=== PATIENT | male | born 1960 ===

== ENCOUNTER 2021-12-08 08:29 | Outpatient (CLI) | payer MEDICAID ==
--- NOTE | 2021-12-08 11:42 | XRAY Report ---
PROCEDURE: Foot 3 View LT INDICATIONS: PAIN IN LEFT TOE TECHNIQUE: 3 views of the foot were acquired. COMPARISON: None FINDINGS: Bones: No fractures or dislocations. No suspicious bony lesions. Soft tissues: No tibiotalar joint effusion. Achilles tendon appears normal. IMPRESSION: No osseous lesion. If there are persistent symptoms or continued clinical concern for pathology, then repeat plain film radiographs (7-10 days) or advanced imaging (CT, MR, bone scan) should be consider ed for further evaluation. Reviewed by: Tracie Wilkinson MD, PhD on 12/08/2021 11:41 AM PST Approved by: Tracie Wilkinson MD, PhD on 12/08/2021 11:[address] [facility] Station ID: [id number]
--- NOTE | 2021-12-08 11:43 | XRAY Report ---
PROCEDURE: Hand 3 View LT INDICATIONS: PAIN IN FINGER LEFT HAND, PAIN IN LEFT TOE TECHNIQUE: 3 views of the hand(s) acquired. COMPARISON: None FINDINGS: Bones: No fractures or dislocations. No suspicious bony lesions. Moderate osteoarthritic degenerati ve changes noted in the fifth PIP joint. Soft tissues: No suspicious soft tissue calcifications. Nonspecific soft tissue swelling noted in th e fifth finger. IMPRESSION: Moderate fifth DIP joint osteoarthritis. Reviewed by: Tracie Wilkinson MD, PhD on 12/08/2021 11:42 AM PST Approved by: Tracie Wilkinson MD, PhD on 12/08/2021 11:42 AM PST Station ID: [id number]
== END 2021-12-08 08:30 | disposition home or self-care (01) ==
LOC: DI.S 08:29
PROVIDERS: ATTEND Nurse Practitioner Family
DX: M19.042 Primary osteoarthritis, left hand (principal); M79.675 Pain in left toe(s)

== ENCOUNTER 2023-02-25 07:00 | Outpatient (CLI) | payer MEDICAID ==
--- NOTE | 2023-02-25 12:09 | XRAY Report ---
PROCEDURE: Knee 4 View RT INDICATIONS: RIGHT KNEE EFFUSION TECHNIQUE: 3 views of the right knee(s) were acquired. COMPARISON: None. FINDINGS: Bones: No fractures or dislocations. No suspicious bony lesions. Doubtful narrowing of joint spac e and possible osteophytic lipping. Soft tissues: Trace knee joint effusion. No suspicious soft tissue calcifications or masses. IMPRESSION: No acute bony abnormality. Trace knee joint effusion. Kellgren-Vikram scale of osteoarthritis: Grade 1: mild osteoarthritis. Reviewed by: Narendra Junior on 02/25/2023 12:07 PM PDT Approved by: Narendra Junior on 02/25/2023 12:07 PM PDT Station ID: [id number]
== END 2023-02-25 23:59 | disposition home or self-care (01) ==
LOC: DI.S 07:00
PROVIDERS: ATTEND Physician Assistant
DX: M17.11 Unilateral primary osteoarthritis, right knee (principal); M25.461 Effusion, right knee

== ENCOUNTER 2024-04-30 08:00 | Outpatient (CLI) | payer MEDICAID ==
--- NOTE | 2024-04-30 11:39 | XRAY Report ---
PROCEDURE: Humerus RT INDICATIONS: RIGHT ARM FB POST REMOVAL TECHNIQUE: 2 views of the humerus were acquired. COMPARISON: Earlier study from the same day. FINDINGS: Bones: No fractures or dislocations. No suspicious bony lesions. Soft tissues: No suspicious soft tissue calcifications or masses. Small amount of subcutaneous emp hysema along posterior and lateral aspect of distal humeral shaft is seen. There is interval removal of earlier noted linear metallic density in distal upper arm soft tissue. IMPRESSION: Interval removal of earlier noted right distal upper arm soft tissue foreign body. No radiopaque fore ign body is seen on the current study. No humeral fracture or dislocation. Reviewed by: Khris Patel MD on 04/30/2024 11:38 AM PDT Approved by: Khris Patel MD on 04/30/2024 11:38 AM PDT Station ID: [id number]
--- NOTE | 2024-04-30 16:11 | XRAY Report ---
PROCEDURE: Humerus RT INDICATIONS: RIGHT ARM SOFT TISSUE MASS TECHNIQUE: 2 views of the humerus were acquired. COMPARISON: None. FINDINGS: Bones: No fractures or dislocations. No suspicious bony lesions. Soft tissues: No suspicious soft tissue calcifications or masses. Linear hyperdensity in the subcuta neous soft tissues measuring 2.7 cm. IMPRESSION: 1.No acute bony abnormality. 2.Linear hyperdensity in the subcutaneous soft tissues measuring 2.7 cm. Correlate with physical exam . If clinically warranted, an ultrasound can be performed for further evaluation. Reviewed by: Mary Ann Charles MD on 04/30/2024 4:10 PM PDT Approved by: Mary Ann Charles MD on 04/30/2024 4:10 PM PDT Station ID: [id number]
== END 2024-04-30 23:59 | disposition home or self-care (01) ==
LOC: DI.S 08:00
PROVIDERS: ATTEND Registered Nurse
DX: M79.89 Other specified soft tissue disorders (principal)